=== PATIENT | male | born 1995 | race African-American/Black ===

== ENCOUNTER 2022-06-25 13:09 | Emergency (ER) | payer OTHER ==
[~2022-06-25] VITALS: Ht 180.3 cm; Wt 81.2 kg
[2022-06-25 13:22] VITALS: BP 124/66
--- NOTE | 2022-06-25 13:40 | NUR ---
BIB SELF C/O 8/10 LOWER ABDOMINAL PAIN, PAINFUL URINATION, DIARRHEA X 2 DAYS. PMH: ASTHMA
[2022-06-25 15:49] LABS: APPEARANCE,URINE CLEAR (CLEAR); BILIRUBIN,URINE NEGATIVE (NEGATIVE); BLOOD, URINE 1+ (NEGATIVE); COLOR,URINE YELLOW (YELLOW); LEUKOCYTE ESTERASE ,URINE 3+ (NEGATIVE); NITRITE, URINE NEGATIVE (NEGATIVE); PH,URINE 7.5 (5.0-9.0); UGLUCOSE NEGATIVE (NEGATIVE)
[2022-06-25 15:58] LABS: WBC,URINE 16-25 (MOD) /HPF (0-5)
[2022-06-25 15:59] LABS: TRICHOMONAS,URINE None Seen /HPF (None Seen); YEAST,URINE None Seen /HPF (None Seen)
[2022-06-25] MEDS ORDERED: cefTRIAXone 500 MG in LIDOCAINE MPF 1% 1 ML IM ONE (16:05)
[2022-06-25] MEDS ORDERED: CIPR500T4 PO (16:07)
[2022-06-25] MEDS ORDERED: DOXY-690 PO (16:07)
[2022-06-25] MEDS ORDERED: LIDOCAINE MPF 1% 5 ML ONE (16:25)
[2022-06-25] MEDS ORDERED: cefTRIAXone 500 MG VIAL ONE (16:25)
[2022-06-25 16:31] VITALS: BP 116/68
--- NOTE | 2022-06-25 16:45 | NUR ---
Patient discharged with v/s stable. Written and verbal after care instructions given and explained. Patient alert, oriented and verbalized understanding of instructions. Ambulatory with steady gait. All questions addressed prior to discharge. ID band removed. Patient advised to follow up with PMD. Rx of CIPRO, DOXYCYCLINE given. Patient educated on indication of medication including possible reaction and side effects. Opportunity to ask questions provided and answered.
== END 2022-06-25 16:44 | disposition home or self-care (01) ==
LOC: MED 13:09
DX: N39.0 Urinary tract infection, site not specified (principal); F12.90 Cannabis use, unspecified, uncomplicated
CPT/HCPCS: 81001; 87086; 87491; 96372; 99283; J0696; J2001